=== PATIENT | female | born 1995 | race African-American/Black ===

== ENCOUNTER 2017-06-30 22:06 | Inpatient (IN) | payer OTHER, SELFPAY ==
[2017-06-30] MEDS ORDERED: Acetaminophen 500 MG TAB ONE (22:17)
[2017-06-30 23:20] LABS: Bilirubin Negative (Negative); Blood, Urine Large (Negative); Clarity TURBID (Clear); Glucose, Urine (Dipstick) Negative (Negative); Leukocyte Large (Negative); Nitrite Negative (Negative); Protein, Urine (Dipstick) 100 mg/dL (Neg-Trace); Specific Gravity, Urine 1.016 (1.002-1.036); Urobilinogen 0.2 mg/dL (0.2-1.0); pH, Urine 6.5 (5.0-9.0)
[2017-06-30 23:22] LABS: Bacteria/HPF 4+ HPF (None Seen); Hyaline Casts/LPF 7-10 HYALINE CAST LPF (0-3 Hyaline); RBC/HPF GREATER THAN 50-TNTC HPF (0-3); Squamous Epithelial 0-3 HPF (0-3)
[2017-06-30] MEDS ORDERED: cefTRIAXone\\ROCEPHIN 2 GM in Sodium Chloride 0.9% 100 ML IVPB SCH (23:59)
[2017-07-01] LABS: #Basophils 0.1 thou/uL (0.0-0.2); #Lymphocytes 0.6 thou/uL (1.20-3.40); #Monocytes 0.6 thou/uL (0.11-0.59); #Neutrophils 7.9 thou/uL (1.40-6.50); %Basophils 0.9 % (0.0-1.0); %Eosinophils 0.2 % (0.0-10.0); %Lymphocytes 6.6 % (21.0-51.0); %Monocytes 6.3 % (0.0-10.0); %Neutrophils 86.1 % (42.0-75.0); Hemoglobin 10.7 g/dL (12.0-16.0); Mean Corpuscular HGB CONC 33.8 g/dL (32.0-36.0); Mean Corpuscular Hemoglobin 31.7 pg (27.0-31.0); Mean Corpuscular Volume 93.7 fl (81.0-99.0); Mean Platelet Volume 8.1 fL (7.4-10.4); Platelet Count 215 thou/uL (130-400); RBC Distribution Width 11.9 % (11.5-14.5); Red Blood Cell (RBC) Count 3.37 mill/uL (4.20-5.40); White Blood Cell (WBC) Count 9.2 thou/uL (4.8-10.8)
[2017-07-01 00:25] LABS: ALT (SGPT) 14 U/L (8-55); AST (SGOT) 15 U/L (5-34); Albumin 3.3 g/dL (3.5-5.0); Alkaline Phosphatase 122 U/L (40-150); Anion Gap 12 mmol/L (10-20); BUN (Urea Nitrogen) 7 mg/dL (7.0-18.7); Bilirubin, Total 0.3 mg/dL (0.2-1.2); Calc. Creatinine Clearance 0 mL/min (70-130); Calcium 9.3 mg/dL (7.8-10.44); Carbon Dioxide 22 mmol/L (22-29); Chloride 104 mmol/L (98-107); Estimated GFR-MDRD Greater than 90; Globulin 3.6 g/dL (2.4-3.5); Glucose 89 mg/dL (70-105); Potassium 3.7 mmol/L (3.5-5.1); Protein, Total 6.9 g/dL (6.0-8.3); Sodium 134 mmol/L (136-145)
--- NOTE | 2017-07-01 00:27 | PDOC.EVN ---
Event Note - Event Note Event Note: @0015: OB HISTORY and PHYSICAL Admitted direct from ED for Dr cary Reason: Suspected Pyelo at 24 weeks HPI: This is a 24 yo G1 at 24 weeks with complaint of fever. no VB, no ROM, no decreased FM. Denies other issues. No GI or other complaints...just fever. Review of systems: Complete ROS done and negative as per HPI Med Hx: negative Allergies: None Surgical HX: none labs with WBC 9.2, HCT 31, CMP pending, UA with evidence UTI. Physical: TMax 101.4 NAD Ut firm No VB No real CVAT Pending: Ob sono, bilateral renal sono, urine and blood cultures Assessment: 24 weeks with fever and UA with evidence UTI...suspected Pyelo. Influenza screen neg Plan: 1. Blood and urine cultures 2. Start IV Rocephin and po macrobid until sensitivities back 3. IVFs 4. Ob and bilateral renal sono 5. Dr Cary will assume care tomorrow, she is aware of the arrival of Servin.
[2017-07-01] MEDS ORDERED: Acetaminophen 500 MG TAB PO PRN (00:30)
--- NOTE | 2017-07-01 00:33 | PDOC.EVN ---
Event Note - Event Note Event Note: Creatinine 0.8
--- NOTE | 2017-07-01 08:28 | ULT ---
PRELIMINARY REPORT/[facility]/EMERGENCY AFTER HOURS PROCEDURE: EXAM: US After First Trimester, Transabdominal CLINICAL HISTORY: 21 years old, female; Signs and symptoms; Lmp or gestational age (in weeks): 25w0d; Antepartum compli cations; Other: Fever 104; ; Patient HX: Fever, n/v TECHNIQUE: Real-time transabdominal obstetrical ultrasound of the maternal pelvis and a second or third trimeste r with image documentation. COMPARISON: No relevant prior studies available. FINDINGS: Fetus: Single live intrauterine Heart rate: 165 beats per minute Presentation: Vertex Placenta: Unremarkable. No abruption. Amniotic fluid: Unremarkable. Anatomy: Visualized anatomy is normal. BIOMETRICS Gestational age by US: 25 weeks and 0 days EFW: 765 g MATERNAL: Uterus: Unremarkable. No myometrial mass. Cervix: Unremarkable as visualized. Closed. Free fluid: No free fluid. IMPRESSION: Single live intrauterine with estimated due date of 10/14/2017 No acute findings Thank you for allowing us to participate in the care of your patient. Dictated and Authenticated by: Sami Dalal MD 07/01/2017 2:41 AM Central Time ([place] & [place]) FINAL REPORT BY DR. RAMSEY EMERGENCY AFTER HOURS STUDY ULTRASOUND OBSTETRICAL COMPLETE: HISTORY: 21-year-old female with fever. FINDINGS: number: Cristobal. lie: Cephalic. Maternal cervix: 3 cm in length and closed. Placenta: Posterior. No placenta previa or abruption. Amniotic fluid volume: CESAR = 13 cm. heart rate: 165 bpm. The following anatomy is visualized, with no evidence of anomalies: Head, lateral ventricles, cerebellum, nose and lips, spine, upper limbs, lower limbs, four chamber he art, umbilical cord, cord insertion, stomach, kidneys, and bladder. biometry: Head circumference (HC): 22.8 cm 24w 6d Biparietal diameter (BPD): 6.2 cm 25w 1d Abdominal circumference (AC): 20.3 cm 24w 6d Femur length (FL): 4.6 cm 25w 2d Average ultrasound age (AUA): 25w 0d Estimated date of delivery (PERCY): 10/14/2017 Last menstrual period (LMP): 01/03/2017. Gestational age by LMP: 25w 4d Estimated weight (EFW): 765 g+/- 113 g (1 lb, 11 oz +/- 4 oz) This report agrees with the preliminary report by Ginger. IMPRESSION: 1. Live late second trimester intrauterine gestation. 2. Estimated gestational age of 25 weeks, 0 days. 3. Cephalic lie. 4. No anatomical abnormalities. 5. No evidence of complications. jn [] POS: JIN
--- NOTE | 2017-07-01 08:31 | ULT ---
PRELIMINARY REPORT/[facility]/EMERGENCY AFTER HOURS PROCEDURE: EXAM: US Retroperitoneal Limited, Renal CLINICAL HISTORY: 21 years old, female; Signs and symptoms; Fever and nausea and vomiting; TECHNIQUE: Real-time ultrasound of the retroperitoneum (limited) with image documentation. COMPARISON: US - OB 2017-07-01 01:24 FINDINGS: The urinary bladder demonstrates mild debris. Bilateral ureteral jets noted Right kidney: Question mild increased echogenicity No stones. No solid mass. No hydronephrosis. Left kidney: 5-6 mm calculus in the midpole. No solid mass. No hydronephrosis. IMPRESSION: 5-6 mm calculus in the midpole of the left kidney without hydronephrosis Mild debris in the urinary bladder. Question mild echogenicity to the right kidney Correlate clinical ly for cystitis/pyelonephritis Thank you for allowing us to participate in the care of your patient. Dictated and Authenticated by: Sami Dalal MD 07/01/2017 2:43 AM Central Time ([place] & [place]) FINAL REPORT BY DR. RAMSEY EMERGENCY AFTER HOURS STUD ULTRASOUND RETROPERITONEUM COMPLETE: (RENAL) Date: 07/01/17 Time: 0158 hours HISTORY: 21-year-old female with fever, nausea, and emesis. FINDINGS: Right Kidney: 9.5 x 4 x 4.5 cm. Left Kidney: 10.5 x 6 x 5 cm. Right renal parenchymal echogenicity is diffusely increased. No hydronephrosis bilaterally. Hyperechoic 0.5 cm focus at central portion of left renal mid-lower pole, questionable for a calculus . Left kidney is poorly visualized because of partial obscuring secondary to shadowing from adjacent gareth wel gas. Uncertain whether the parenchymal echogenicity is abnormal. Urinary bladder volume is 55 mL at time of scan. Tiny echogenic foci suspended within the bladder lumen, which could be sludge, pus, blood, or other d ebris. This report agrees with the preliminary report by Ginger. IMPRESSION: 1. Increased echogenicity of right kidney, and questionably of the left kidney. This could represent pyelonephritis or glomerular disease. Recommend correlation with urinalysis. 2. No obstructive uropathy. 3. Debris within the urinary bladder. VITALY Ashley POS: PERLITA
[2017-07-01] MEDS: Lactated Ringer's 1,000 ML IV SCH ×4 (08:41→23:16)
--- NOTE | 2017-07-01 09:17 | PRG ---
DATE OF SERVICE: 07/01/2017 TIME OF VISIT: 0800 SUBJECTIVE: The patient reports feeling well. She has not had any nausea or vomiting since admissio n. She denies any back pain or abdominal pain. No headache. No contractions, vaginal bleeding, or leakage of fluid. She feels the baby move. OBJECTIVE: VITAL SIGNS: Temperature current 98.8, temperature max of 101.4, pulse is 86, respirations 18, blood pressure 127/81. GENERAL: No acute distress. HEART: Regular rate and rhythm. LUNGS: Clear to auscultation bilaterally. ABDOMEN: Soft, nontender, gravid. No CVA tenderness bilaterally. EXTREMITIES: No edema, cyanosis or clubbing. IMAGING: Bilateral renal ultrasound shows a 5-6 mm nonobstructing renal calculi with no hydronephros is. The right kidney shows mildly increased echogenicity, possibly consistent with cystitis or pyelo nephritis. ultrasound shows a 25-week intrauterine , cephalic presentation, weighing 765 grams, CESAR of 13 cm, 3 cm cervical length. Normal appearing placenta. LABORATORY DATA: White count 9.2, hemoglobin 10.7, 86% neutrophils. Chemistries are normal. UA bradford ws 3+ protein, trace ketones, large blood, large leukocyte esterase and 4+ bacteria. ASSESSMENT AND PLAN: This is a 21-year-old G1, P0 at 25 weeks 4 days with fever and complicated cyst itis and a left nephrolithiasis, nonobstructing and asymptomatic. The patient has been started on Ro cephin 2 grams q.24 as well as IV fluids. We will await culture results for further tailoring of out patient antibiotic therapy. I discussed with the patient, she needs to be at least 24 hours afebrile prior to discharge. She has no evidence of labor or chorioamnionitis, and her ultrasound of the baby was normal. We will do q. shift FHTs and continue current inpatient care.
[2017-07-01] MEDS: Prenatal Vitamin 1 TAB PO SCH (12:12)
[2017-07-01] MEDS: Nitrofurantoin Monohyd/M-Cryst 100 MG CAP PO SCH ×2 (12:12→22:07)
[2017-07-02] MEDS ORDERED: cefTRIAXone\\ROCEPHIN 2 GM in Sodium Chloride 0.9% 100 ML IVPB SCH (00:01)
[2017-07-02] MEDS ORDERED: Sodium Chloride 0.9% 10 ML ONE (00:16)
[2017-07-02] MEDS: Lactated Ringer's 1,000 ML IV SCH (06:34)
[2017-07-02] MEDS: Prenatal Vitamin 1 TAB PO SCH (08:35)
[2017-07-02] MEDS: Nitrofurantoin Monohyd/M-Cryst 100 MG CAP PO SCH (08:35)
[2017-07-02] MEDS ORDERED: Cephalexin 250 MG CAP PO SCH ×2 (10:30→21:00)
[2017-07-02 10:47] VITALS: BP 130/87; TEMP 98.7
--- NOTE | 2017-07-02 11:40 | DIS ---
DATE OF ADMISSION: 06/30/2017 DATE OF DISCHARGE: 07/02/2017 ADMISSION DIAGNOSES: 1. Intrauterine at 25 weeks and 3 days. 2. Pyelonephritis. DISCHARGE DIAGNOSES: 1. Intrauterine at 25 weeks and 5 days. 2. Pyelonephritis. DISCHARGE CONDITION: Stable. ATTENDING PHYSICIAN: Mayra Cary M.D. HISTORY AND PHYSICAL EXAMINATION: Please see previously dictated H&P by Dr. Power. HOSPITAL COURSE: A 21-year-old G1, P0, presented at 25 weeks and 3 days with fever, some abdominal d iscomfort and nausea and vomiting. She had no evidence of labor as well as any intra-abdomin al process. She did have a UA that showed 4+ bacteria and signs consistent with complicated urinary tract infection versus pyelonephritis. She had bilateral renal ultrasound that showed increased echo genicity in the right kidney, possibly consistent with infection and a small nonobstructing 5 mm calc claudio in the left renal pole. She also had a ultrasound that showed a size equal dates vertex fe tus with good amniotic fluid. The patient did not have any pain during her admission. She was afebr ile from her temperature max of 101.4 in the ER. She was started on Rocephin 2 g daily as well as IV fluids and urine culture was sent. The urine culture returned as Klebsiella UTI that was sensitive to Rocephin as well as Keflex. It was intermediate sensitivity to Macrobid. Therefore, the patient was transitioned to p.o. Keflex b.i.d. for 7 days and then she will continue on Keflex suppression f or the remainder of her . FHTs were monitored on a daily basis and she tolerated a regular diet and had a benign exam on the day of discharge. She will follow up with me next week in clinic a nd was given warnings to return to the ER in the event of recurrent fever or severe pain. Final urin e culture is pending at the time of discharge.
== END 2017-07-02 11:39 | disposition home or self-care (01) | DRG 782 ==
LOC: ERS 22:06 → ERHOLD 07-01 00:15 → 3SE 07-01 07:26
PROVIDERS: ADMIT Student in an Organized Health Care Education/Training Program; ATTEND Student in an Organized Health Care Education/Training Program
DX: O75.3 Other infection during labor (principal); N20.0 Calculus of kidney; Z3A.25 25 weeks gestation of pregnancy
CPT/HCPCS: 76770; 76805; 80053; 81003; 81015; 83605; 85025; 87040; 87077; 87086; 87186; 96361; 96365; A4216; J0696; J7050

== ENCOUNTER 2017-07-23 16:22 | Inpatient (IN) | payer OTHER ==
[2017-07-23] MEDS ORDERED: hydrALAZINE 20 MG/ML VIAL ONE (17:13)
[2017-07-23] MEDS ORDERED: Magnesium Sulfate 20 GM/WATER 500 ML BAG IVPB SCH (17:15)
[2017-07-23] MEDS: hydrALAZINE 20 MG/ML VIAL SLOW IVP PRN ×2 (17:22→17:48)
[2017-07-23] MEDS ORDERED: Ondansetron HCl/PF 4 MG/2 ML Vial IVP PRN (17:39)
[2017-07-23] MEDS: Lactated Ringer's 1,000 ML IV SCH (17:45)
[2017-07-23] MEDS ORDERED: Lactated Ringer's 1,000 ML IV SCH (17:45)
[2017-07-23] MEDS: Magnesium Sulfate 20 gm/500 ml 20 GM/500 ML BAG IVPB SCH (18:05)
[2017-07-23 18:22] LABS: #Basophils 0.1 thou/uL (0.0-0.2); #Eosinphils 0.1 thou/uL (0.0-0.7); #Lymphocytes 2.3 thou/uL (1.20-3.40); #Monocytes 1.2 thou/uL (0.11-0.59); #Neutrophils 6.5 thou/uL (1.40-6.50); %Basophils 0.6 % (0.0-1.0); %Eosinophils 0.6 % (0.0-10.0); %Lymphocytes 22.4 % (21.0-51.0); %Monocytes 11.8 % (0.0-10.0); %Neutrophils 64.6 % (42.0-75.0); Hemoglobin 12.3 g/dL (12.0-16.0); Mean Corpuscular HGB CONC 32.9 g/dL (32.0-36.0); Mean Corpuscular Hemoglobin 30.7 pg (27.0-31.0); Mean Corpuscular Volume 93.4 fl (81.0-99.0); Mean Platelet Volume 8.5 fL (7.4-10.4); Platelet Count 239 thou/uL (130-400); RBC Distribution Width 12.4 % (11.5-14.5); White Blood Cell (WBC) Count 10.1 thou/uL (4.8-10.8)
[2017-07-23 18:42] LABS: ALT (SGPT) 9 U/L (8-55); AST (SGOT) 17 U/L (5-34); Albumin 2.6 g/dL (3.5-5.0); Alkaline Phosphatase 187 U/L (40-150); Anion Gap 11 mmol/L (10-20); BUN (Urea Nitrogen) 9 mg/dL (7.0-18.7); Bilirubin, Total 0.2 mg/dL (0.2-1.2); Calc. Creatinine Clearance 0 mL/min (70-130); Calcium 8.6 mg/dL (7.8-10.44); Carbon Dioxide 21 mmol/L (22-29); Chloride 106 mmol/L (98-107); Estimated GFR-MDRD Greater than 90; Globulin 3.5 g/dL (2.4-3.5); Glucose 65 mg/dL (70-105); Potassium 4.3 mmol/L (3.5-5.1); Protein, Total 6.1 g/dL (6.0-8.3); Sodium 134 mmol/L (136-145)
[2017-07-23] MEDS: Betamet Acet/Betamet Na Ph 30 MG/5 ML VIAL IM SCH (18:51)
[2017-07-23 19:05] LABS: HBSAg Index 0.18 S/CO (0-0.99); Hep B Surf Ag Non-Reactive S/CO (NonReactive)
[2017-07-23 19:06] LABS: Syphilis Antibody Nonreactive (Nonreactive); Syphilis Antibody Index 0.03 S/CO (<1.00 Non-Reactive)
--- NOTE | 2017-07-23 19:09 | ULT ---
OB ULTRASOUND WITH BIOPHYSICAL PROFILE: 07/23/17 HISTORY: Pre-eclampsia. FINDINGS: A single live intrauterine gestation is seen with measurements corresponding to an estimated gestatio nal age of 28 weeks, 0 days and PERCY at 10/15/17. The estimated weight measures 1106 grams or 2 lb. and 7 oz. measurements are as follows: BPD 7.17 cm 28 weeks, 5 days HC 26.47 cm 28 weeks, 6 days AC 22.97 cm 27 weeks, 2 days FL 5.16 cm 27 weeks, 4 days heart rate measures 144 beats per minute. CESAR measures 12.3 cm. Placenta is posteriorly located without evidence of placenta previa. position is cephalic. The visualized parts are unre markable. There is normal tone, breathing, movements and amniotic fluid. IMPRESSION: 1. Single live intrauterine gestation of 28 weeks, 0 days and PERCY at 10/15/17. 2. Ultrasound biophysical profile score is 8 out of 8. POS: AMALIA
[2017-07-23 19:20] VITALS: BMI 26.5
[2017-07-23] MEDS ORDERED: NIFEdipine XL 30 MG TAB PO SCH (19:45)
[2017-07-24] MEDS: Magnesium Sulfate 20 gm/500 ml 20 GM/500 ML BAG IVPB SCH ×2 (01:53→16:16)
[2017-07-24] MEDS: Lactated Ringer's 1,000 ML IV SCH ×3 (06:29→19:17)
[2017-07-24] MEDS ORDERED: FLU VACC QS2017-18 36 mo. & older 0.5 ML SYRINGE IM ONE (09:00)
[2017-07-24 09:25] LABS: ALT (SGPT) 9 U/L (8-55); AST (SGOT) 15 U/L (5-34); Albumin 2.6 g/dL (3.5-5.0); Alkaline Phosphatase 192 U/L (40-150); Anion Gap 14 mmol/L (10-20); BUN (Urea Nitrogen) 11 mg/dL (7.0-18.7); Bilirubin, Total Less than 0.2 mg/dL (0.2-1.2); Calc. Creatinine Clearance 89 mL/min (70-130); Calcium 8.5 mg/dL (7.8-10.44); Carbon Dioxide 21 mmol/L (22-29); Chloride 102 mmol/L (98-107); Estimated GFR-MDRD 78; Globulin 3.7 g/dL (2.4-3.5); Glucose 91 mg/dL (70-105); Potassium 5.6 mmol/L (3.5-5.1); Protein, Total 6.3 g/dL (6.0-8.3); Sodium 131 mmol/L (136-145)
[2017-07-24] MEDS: NIFEdipine XL 30 MG TAB PO SCH (10:08)
--- NOTE | 2017-07-24 10:58 | HP ---
DATE OF ADMISSION: 07/23/2017 PRIMARY OB: Mayra Cary MD CHIEF COMPLAINT: Elevated blood pressures. HISTORY OF PRESENT ILLNESS: The patient is a 21-year-old female with an intrauterine at 28 weeks and 6 days, who was sent to Labor and Delivery from clinic for elevated blood pressures. The patient denies headaches, abdominal pains, shortness of breath, illness or fever. She denies v aginal bleeding, leakage of fluid. PAST MEDICAL HISTORY: Negative. PAST SURGICAL HISTORY: Negative. ALLERGIES: No known drug allergies. MEDICATIONS: She is on vitamins and was recently started on Keflex last month for an unknow n infection cyst assumed UTI. SOCIAL HISTORY: Denies drug, alcohol or tobacco use. OB LABS: Blood type is A positive, antibody screen is negative, HIV nonreactive, RPR nonreactive, he patitis B surface antigen nonreactive. Her one hour Glucola is unavailable. REVIEW OF SYSTEMS: The patient denies headache, chest pain, shortness of breath, fall, illness, naus ea, vomiting, diarrhea, constipation, any new rashes, hip problems, knee problems, muscle weakness, v aginal bleeding, leakage of fluid, or urinary urgency or frequency. PHYSICAL EXAMINATION: VITAL SIGNS: On arrival, blood pressure was 192/101 and persisted in the severe range until she was treated with Apresoline 5 x2, which brought her down into the mild range blood pressures. GENERAL: She is alert and oriented, cooperative and pleasant to interact with. HEENT: Head is normocephalic, atraumatic. LUNGS: Clear to auscultation bilaterally. HEART: Regular rate and rhythm. ABDOMEN: Soft, nontender. EXTREMITIES: Nontender, but has 2+ pitting edema. GENITOURINARY: Has been deferred. HEART TRACING: Fetus was in the 140s with moderate long-term variability, positive acceleratio ns, no decelerations. Tocometer has some irritability, but no irregular contractions felt by the pat ient. LABORATORY DATA: Hemoglobin is 12.3, hematocrit is 37.3, and platelets of 239,000. Sodium 134, pota ssium 4.3, chloride 106, BUN is 9, creatinine is 0.93, glucose of 65, AST is 17, ALT is 9, albumin is 2.6. Her total urine random total protein is over 2000 and urine creatinine is 127. Hepatitis B tomas rface antigen is nonreactive and RPR is nonreactive with this admission. BPP is 8/8 and ultrasound has a fetus appropriate size for age with normal CESAR. ASSESSMENT AND PLAN: The patient is a 21-year-old female with severe induced hypertension or preeclampsia with severe features as evidenced by significant proteinuria and possible elevation i n her creatinine. She has required a total of 2 doses of hydralazine to bring her pressures into the mild range. She will be admitted to the hospital for magnesium for seizure prophylaxis, steroid adm inistration and continued observation with serial labs. Fetus has a category 1 tracing at this time. The patient will remain inpatient for the foreseeable future for management of this condition, deli very if indicated or when indicated.
[2017-07-24 12:06] LABS: Hemoglobin 12.5 g/dL (12.0-16.0); Mean Corpuscular HGB CONC 33.1 g/dL (32.0-36.0); Mean Corpuscular Hemoglobin 31.5 pg (27.0-31.0); Mean Corpuscular Volume 95.1 fl (81.0-99.0); Mean Platelet Volume 8.8 fL (7.4-10.4); Platelet Count 267 thou/uL (130-400); RBC Distribution Width 12.6 % (11.5-14.5); Red Blood Cell (RBC) Count 3.99 mill/uL (4.20-5.40); White Blood Cell (WBC) Count 13.5 thou/uL (4.8-10.8)
[2017-07-24 12:19] LABS: Magnesium 8.6 mg/dL (1.6-2.6); Potassium 5.3 mmol/L (3.5-5.1)
[2017-07-24] MEDS: Betamet Acet/Betamet Na Ph 30 MG/5 ML VIAL IM SCH (18:12)
[2017-07-24 18:20] LABS: #Basophils 0.1 thou/uL (0.0-0.2); #Lymphocytes 1.6 thou/uL (1.20-3.40); #Monocytes 1.1 thou/uL (0.11-0.59); #Neutrophils 13.2 thou/uL (1.40-6.50); %Basophils 0.5 % (0.0-1.0); %Lymphocytes 9.9 % (21.0-51.0); %Monocytes 6.9 % (0.0-10.0); %Neutrophils 82.6 % (42.0-75.0); Hemoglobin 12.4 g/dL (12.0-16.0); Mean Corpuscular HGB CONC 33.5 g/dL (32.0-36.0); Mean Corpuscular Hemoglobin 31.2 pg (27.0-31.0); Mean Corpuscular Volume 93.2 fl (81.0-99.0); Platelet Count 273 thou/uL (130-400); RBC Distribution Width 12.6 % (11.5-14.5); Red Blood Cell (RBC) Count 3.96 mill/uL (4.20-5.40)
[2017-07-24 18:38] LABS: Anion Gap 13 mmol/L (10-20); BUN (Urea Nitrogen) 12 mg/dL (7.0-18.7); Calc. Creatinine Clearance 86 mL/min (70-130); Calcium 8.2 mg/dL (7.8-10.44); Carbon Dioxide 19 mmol/L (22-29); Chloride 102 mmol/L (98-107); Estimated GFR-MDRD 75; Glucose 91 mg/dL (70-105); Magnesium 7.4 mg/dL (1.6-2.6); Sodium 129 mmol/L (136-145)
[2017-07-24] MEDS ORDERED: Promethazine HCl 25 MG/ML VIAL IM PRN (18:55)
[2017-07-24] MEDS ORDERED: Ondansetron HCl/PF 4 MG/2 ML Vial IVP PRN (18:55)
[2017-07-24] MEDS ORDERED: Zolpidem Tartrate 5 MG TAB PO PRN (18:55)
[2017-07-24] MEDS ORDERED: Magnesium Sulfate 20 gm/500 ml 20 GM/500 ML BAG IVPB SCH (18:59)
[2017-07-24] MEDS ORDERED: CEFAZOLIN/Water 2 GM/20 ML SYRINGE SLOW IVP SCH (19:00)
[2017-07-24] MEDS ORDERED: Bicitra 30 ML UDCUP PO SCH (19:00)
--- NOTE | 2017-07-24 19:23 | PRG ---
DATE OF SERVICE: 07/24/2017 TIME OF SERVICE: 13:15. SUBJECTIVE: Ms. Servin is resting comfortably. She denies headaches, scotoma, or blurred vision. OBJECTIVE: VITAL SIGNS: Blood pressures are running 130s to 140s systolic over 80s-90s diastolic. heart rate tracing is 120s to 130s. No contractions noted. No decelerations noted. Category 1 tracing. LABORATORY STUDIES: Elevated potassium was noted along with a slight increase in her creatinine and a mag of 8. IMPRESSION: Severe preeclampsia at 27-28 weeks. The patient is currently receiving magnesium and an tenatal steroids. PLAN: We will recheck labs at 1800. If labs continue to worsen, may need to facilitate delivery.
--- NOTE | 2017-07-24 19:43 | PRG ---
DATE OF SERVICE: 07/24/2017 TIME OF SERVICE: 1900. SUBJECTIVE: Patient is resting comfortably. She denies headache, reports an active fetus. No contractions, no right upper quadrant pain. Exam unchanged. LABORATORY DATA: Patient's hematocrit is 37%, which is consistent with her previous hematocrit. Platelet count is stable at 273, white count is slightly elevated at 16,000 likely secondary to betamethasone administration. Chemistry reveals mild hyponatremia at 129. Her potassium has come down to within normal limits of 5.0. Her creatinine has increased slightly from 0.93 of 24 hours ago to 1.07 this a.m. to 1.1 now. Her mag level decreased from 8.6-7.4. Her ALT is stable at 13. OBJECTIVE: VITAL SIGNS: Patient's urine output has ranged between 100 to 25 mL an hour. There is averaging approximately 30-40 mL per hour. Total urine output over 11 hours was 480 mL. Total input was 1200 mL. Blood pressures during the day today have generally ranged in the 130s to 140s systolic over 80s to low 100s diastolic, and the patient remains afebrile. HEART: Rate tracing remains category 1-2 with no significant decels, decreased variability as would be expected with magnesium sulfate. IMPRESSION: Severe preeclampsia was primarily renal features at 28-29 weeks' gestation. Patient is currently 25 hours post-initial administration of corticosteroids. Magnesium levels remained moderately elevated likely due to decrease renal function. Cervix is unfavorable cephalic remote from delivery with an estimated weight of 1100 grams on ultrasound. PLAN: Patient's care plan was discussed with Dr. Cary and with Dr. Box. All parties are in agreement that delivery is likely necessary in the medium term future. As the creatinine is slowly increasing and the patient is maintaining a reasonable urine output, although low, we will plan on performing primary section in the a.m. of 07/25/2017. We will allow the patient to eat tonight and be n.p.o. after midnight. We will back magnesium off to one- half gram per hour. We will continue current IV rate. We will recheck labs in a.m. Anesthesia aware of care of plan. Continue sequential compression devices for deep venous thrombosis prophylaxis. We will continue to care for the patient on labor and delivery unit and continue routine magnesium sulfate therapy and care including monitoring for magnesium toxicity signs and symptoms. JAYDEN
[2017-07-24 20:12] LABS: HBSAg Index 0.19 S/CO (0-0.99); Hep B Surf Ag Non-Reactive S/CO (NonReactive); Syphilis Antibody Nonreactive (Nonreactive); Syphilis Antibody Index 0.05 S/CO (<1.00 Non-Reactive)
[2017-07-25] MEDS: Lactated Ringer's 1,000 ML IV SCH (01:54)
[2017-07-25 05:47] LABS: INR-International Normal Ratio 0.9; PTT 23.1 SEC (22.9-36.1); Prothrombin Time 12.1 SEC (12.0-14.7)
[2017-07-25 05:56] LABS: AST (SGOT) 17 U/L (5-34); Anion Gap 11 mmol/L (10-20); BUN (Urea Nitrogen) 18 mg/dL (7.0-18.7); Calc. Creatinine Clearance 71 mL/min (70-130); Carbon Dioxide 20 mmol/L (22-29); Chloride 102 mmol/L (98-107); Estimated GFR-MDRD 60; Glucose 109 mg/dL (70-105); Magnesium 6.1 mg/dL (1.6-2.6); Potassium 5.6 mmol/L (3.5-5.1); Sodium 127 mmol/L (136-145)
[2017-07-25 06:11] LABS: #Lymphocytes 1.3 thou/uL (1.20-3.40); #Monocytes 0.5 thou/uL (0.11-0.59); #Neutrophils 11.9 thou/uL (1.40-6.50); %Basophils 0.3 % (0.0-1.0); %Eosinophils 0.1 % (0.0-10.0); %Lymphocytes 9.7 % (21.0-51.0); %Monocytes 3.6 % (0.0-10.0); %Neutrophils 86.3 % (42.0-75.0); Band 3 % (5-11); Hemoglobin 12.3 g/dL (12.0-16.0); Lymphocytes 14 % (21-51); MDiff Complete? YES; Mean Corpuscular HGB CONC 33.1 g/dL (32.0-36.0); Mean Corpuscular Hemoglobin 31.6 pg (27.0-31.0); Mean Corpuscular Volume 95.4 fl (81.0-99.0); Mean Platelet Volume 9.1 fL (7.4-10.4); Monocytes 2 % (0-10); Neutrophil 81 % (42-75); PLT Morphology Comment Appears Adequate; Platelet Count 194 thou/uL (130-400); RBC Distribution Width 12.6 % (11.5-14.5); RBC Morphology Normal; Red Blood Cell (RBC) Count 3.88 mill/uL (4.20-5.40); White Blood Cell (WBC) Count 13.8 thou/uL (4.8-10.8)
[2017-07-25] MEDS ORDERED: Dextrose 5%-Lactated Ringers 1,000 ML IV SCH (07:00)
[2017-07-25] MEDS ORDERED: Fentanyl 100 MCG/2 ML VIAL ONE ×3 (07:22→10:19)
[2017-07-25] MEDS ORDERED: Morphine PF 1 MG/ML SYR ONE (07:22)
[2017-07-25] MEDS ORDERED: Oxytocin 10 UNITS/ML VIAL ONE (07:22)
[2017-07-25] MEDS ORDERED: Ondansetron HCl/PF 4 MG/2 ML Vial ONE ×2 (07:22→17:07)
[2017-07-25] MEDS ORDERED: ePHEDrine/0.9% NaCl/PF SYRINGE 50 mg/10 ml ONE ×3 (07:33→17:07)
[2017-07-25] MEDS ORDERED: Bupivacaine PF 0.5% 30 ML VIAL ONE (07:33)
--- NOTE | 2017-07-25 08:02 | PDOC.OPDEL ---
OB Operative/Delivery Note Delivery Dr/Surgeon: Raeann Assist: Trent Pre-Delivery Diagnosis: other (Preeclampsia with severe features at 29weeks with renal failure) Procedure/Post Delivery Dx: primary low transverse CS Weeks gestation: 29 Anesthesia: epidural - Findings A Sex: female Weight: 2 lb 8 oz - 1 min: 7 - 5 min: 9 - Additional Findings/Plan Placenta delivered: spontaneous findings: low transverse hysterotomy without extension, normal uterus, normal tubes, normal ovaries Estimated blood loss: 600 Post delivery plan: recovery in LICU
[2017-07-25 08:22] LABS: Osmolality, Urine 317 mOsm/kg (300-900)
[2017-07-25 08:33] LABS: Sodium, Urine Less than 20 mmol/L (Not Available)
[2017-07-25] MEDS ORDERED: Naloxone HCl 0.4 mg/ml Vial IV PRN (08:46)
[2017-07-25] MEDS ORDERED: Ketorolac Tromethamine 30 MG/ML VIAL IVP PRN (08:46)
[2017-07-25] MEDS ORDERED: diphenhydrAMINE 50 MG/ML VIAL IVP PRN (08:46)
[2017-07-25] MEDS ORDERED: Naloxone HCl 0.4 mg/ml Vial IVP PRN ×2 (08:46)
[2017-07-25] MEDS ORDERED: Ondansetron HCl/PF 4 MG/2 ML Vial IVP PRN (08:46)
[2017-07-25] MEDS ORDERED: Eucerin (Mineral Oil/Petrolatum,White) 30 gm Jar TOP PRN (08:46)
[2017-07-25] MEDS ORDERED: Communication Order-Pharmacy FS SCH (09:00)
[2017-07-25] MEDS ORDERED: Lanolin Ointment 7 GM TUBE TOP PRN (09:29)
[2017-07-25] MEDS ORDERED: Acetaminophen 325 MG TAB PO PRN (09:29)
[2017-07-25] MEDS ORDERED: Bisacodyl 10 MG SUPP PR PRN (09:29)
[2017-07-25] MEDS ORDERED: diphenhydrAMINE 25 MG CAP PO PRN (09:29)
[2017-07-25] MEDS ORDERED: Adacel (T-DAP) 0.5 ML VIAL IM ONE (09:29)
[2017-07-25] MEDS ORDERED: Furosemide 20 MG/2 ML VIAL SLOW IVP SCH (09:29)
[2017-07-25] MEDS ORDERED: Docusate Calcium (SURFAK) 240 MG CAP PO SCH (09:45)
[2017-07-25] MEDS ORDERED: Prenatal Vitamin 1 TAB PO SCH (09:45)
[2017-07-25] MEDS ORDERED: Ferrous Sulfate 325 MG TAB PO SCH (09:45)
[2017-07-25] MEDS: NIFEdipine XL 30 MG TAB PO SCH (09:47)
[2017-07-25 10:04] LABS: Anion Gap 13 mmol/L (10-20); BUN (Urea Nitrogen) 20 mg/dL (7.0-18.7); Calc. Creatinine Clearance 68 mL/min (70-130); Calcium 7.7 mg/dL (7.8-10.44); Carbon Dioxide 19 mmol/L (22-29); Chloride 104 mmol/L (98-107); Estimated GFR-MDRD 57; Glucose 109 mg/dL (70-105); Magnesium 5.7 mg/dL (1.6-2.6); Potassium 5.4 mmol/L (3.5-5.1); Sodium 131 mmol/L (136-145)
[2017-07-25] MEDS: Dextrose 5 % And 0.9 % NaCl 1,000 ML IV SCH (11:52)
--- NOTE | 2017-07-25 12:48 | ADD-OP ---
ADDENDUM DATE OF PROCEDURE: 07/25/2017 I was present and scrubbed to assist the uncomplicated primary low transverse with Dr. Nevin Cary. Please see her note for full details.
[2017-07-25 14:22] LABS: ALT (SGPT) 10 U/L (8-55); AST (SGOT) 15 U/L (5-34); Albumin 2.5 g/dL (3.5-5.0); Alkaline Phosphatase 181 U/L (40-150); Anion Gap 13 mmol/L (10-20); BUN (Urea Nitrogen) 21 mg/dL (7.0-18.7); Bilirubin, Total Less than 0.2 mg/dL (0.2-1.2); Calc. Creatinine Clearance 65 mL/min (70-130); Calcium 8.1 mg/dL (7.8-10.44); Carbon Dioxide 21 mmol/L (22-29); Chloride 103 mmol/L (98-107); Estimated GFR-MDRD 54; Globulin 3.7 g/dL (2.4-3.5); Glucose 100 mg/dL (70-105); Potassium 4.9 mmol/L (3.5-5.1); Protein, Total 6.2 g/dL (6.0-8.3); Sodium 132 mmol/L (136-145)
[2017-07-25] MEDS: Ferrous Sulfate 325 MG TAB PO SCH (18:30)
[2017-07-25] MEDS ORDERED: HYDROcodone/Acetaminophen 5/325 mg Tablet PO PRN (21:00)
[2017-07-25] MEDS: Docusate Calcium (SURFAK) 240 MG CAP PO SCH (22:30)
[2017-07-26 07:16] LABS: Hemoglobin 11.4 g/dL (12.0-16.0); Mean Corpuscular HGB CONC 32.9 g/dL (32.0-36.0); Mean Corpuscular Hemoglobin 31.8 pg (27.0-31.0); Mean Corpuscular Volume 96.7 fl (81.0-99.0); Mean Platelet Volume 8.6 fL (7.4-10.4); Platelet Count 232 thou/uL (130-400); RBC Distribution Width 12.7 % (11.5-14.5); Red Blood Cell (RBC) Count 3.59 mill/uL (4.20-5.40); White Blood Cell (WBC) Count 15.1 thou/uL (4.8-10.8)
[2017-07-26] MEDS: NIFEdipine XL 30 MG TAB PO SCH (07:25)
[2017-07-26 07:32] LABS: Anion Gap 10 mmol/L (10-20); BUN (Urea Nitrogen) 17 mg/dL (7.0-18.7); Calc. Creatinine Clearance 93 mL/min (70-130); Calcium 7.5 mg/dL (7.8-10.44); Carbon Dioxide 23 mmol/L (22-29); Chloride 106 mmol/L (98-107); Estimated GFR-MDRD 82; Glucose 93 mg/dL (70-105); Potassium 4.7 mmol/L (3.5-5.1); Sodium 134 mmol/L (136-145)
--- NOTE | 2017-07-26 07:34 | PDOC.PP ---
Post Progress Note Post Day #: 1 PO intake tolerated: yes Flatus: yes Ambulation: no Vital Signs (12 hours) Temp Pulse Resp 07/26/17 04:00 98.3 F 72 20 07/26/17 00:00 98.3 F 72 20 07/25/17 20:06 98.3 F 72 20 Weight Weight 150 lb - Physical Examination General: NAD Cardiovascular: RRR Respiratory: non-labored breathing Abdominal: no distention, appropriately TTP Fundus firm & at: umb-2 Extremities: negative homans (B) (SAMARA 1+, DTR 2+ bilaterally) Neurological: no gross focal deficits Psychiatric: normal affect Result Diagrams: 07/26/17 06:37 07/26/17 06:37 Additional Labs: Post Labs Blood Type A POSITIVE 07/23/17 18:01 Hep Bs Antigen Non-Reactive S/CO (NonReactive) 07/24/17 19:17 (1) Severe preeclampsia Code(s): O14.10 - SEVERE PRE-ECLAMPSIA, UNSPECIFIED TRIMESTER Status: Acute Qualifiers: Trimester: second trimester Qualified Code(s): O14.12 - Severe pre- eclampsia, second trimester - Assessment/Plan POD1 from [facility] for Severe PIH with MAXINE Severe PEC- on Mag, up this am, no sx PIH, BP mild range, cont daily procardia. Trend labs this am. DC Mag at 24hr. Hgb appropriate postop, no sx anemia. Routine advances, DC juan c, ambulate, advance diet Rh pos RImm Transfer to floor after Mag.
[2017-07-26] MEDS: hydrALAZINE 20 MG/ML VIAL SLOW IVP PRN (08:36)
--- NOTE | 2017-07-26 12:53 | OP ---
DATE OF OPERATION: 07/25/2017 PREOPERATIVE DIAGNOSES: 1. Intrauterine at 29 weeks and 0 days. 2. Severe pre-eclampsia with acute kidney injury. POSTOPERATIVE DIAGNOSES: 1. Intrauterine at 29 weeks and 0 days. 2. Severe pre-eclampsia with acute kidney injury. PROCEDURE: Primary low transverse section via Pfannenstiel skin incision. ANESTHESIA: Epidural. SURGEON: Mayra Cary M.D. CARGO CHECKER: Taisha Newman M.D. ESTIMATED BLOOD LOSS: 600 mL. URINE OUTPUT: 45 mL of clear urine. COMPLICATIONS: None. PATHOLOGY: Placenta. DRAINS: Mckinney catheter. FINDINGS: Female infant, cephalic presentation, clear amniotic fluid, Apgars of 7 and 9, weighing 2 pounds and 8 ounces. Normal uterus, ovaries and tubes bilaterally. OPERATIVE TECHNIQUE: The patient was taken to the operating room where epidural anesthesia was found to be adequate. The patient was prepped and draped in a sterile fashion in the dorsal supine positi on with a leftward tilt. After ensuring adequacy of anesthesia, a Pfannenstiel skin incision was mad e and carried down to the underlying subcutaneous tissue with the Bovie. The fascia was nicked in th e midline with the Bovie and carried laterally with the Camara scissors. The superior aspect of the fa scia was tented with 2 Kochers and dissected off the rectus with the Camara scissors. Vascular perfora tors to the rectus were cauterized with the Bovie. The inferior aspect of the fascia was tented with 2 Kochers and dissected off the rectus down to the pubic symphysis. The rectus was bluntly divided in the midline and peritoneum was bluntly entered and manually retracted. The Migue O retractor was placed and the lower uterine segment was incised in a transverse fashion and extended with the Sam maneuver. The 's head was brought to the hysterotomy. A ROM was performed and delivere d atraumatically. Delayed cord clamping was performed and the cord was clamped and infant handed to awaiting shilpa team. The placenta was allowed to spontaneously deliver. The uterus was exteriorized, cleared of all clots and debris. The posterior cul-de-sac was lapped out. The uterus was placed kel k into the abdomen. The hysterotomy was repaired with #1 Monocryl in a running locking fashion with excellent hemostasis noted. Irrigation of the pelvis was performed, again noting hemostasis of the h ysterotomy and the rectus muscles were examined and noted to be hemostatic. The fascia was reapproxi mated with a #1 PDS x1 suture with excellent reapproximation. Subcutaneous tissue was irrigated and cauterized of any bleeders and reapproximated with 2-0 plain gut in a running fashion. Skin was clos ed with 4-0 Monocryl in a subcuticular fashion. Dermabond was applied as well as pressure dressing. The patient tolerated procedure well. Sponge, lap, needle counts are correct x2. The patient was t aken to recovery in stable condition. Patient received Ancef 2 grams prior to the procedure.
[2017-07-26] MEDS: Ferrous Sulfate 325 MG TAB PO SCH ×2 (13:25→18:40)
[2017-07-26] MEDS: Prenatal Vitamin 1 TAB PO SCH (13:25)
[2017-07-26] MEDS: Docusate Calcium (SURFAK) 240 MG CAP PO SCH (13:26)
[2017-07-26] MEDS: Dextrose 5 % And 0.9 % NaCl 1,000 ML IV SCH (13:26)
[2017-07-26] MEDS: Simethicone Chewable 80 MG TAB PO PRN (19:28)
[2017-07-26] MEDS: HYDROcodone/Acetaminophen 5/325 mg Tablet PO PRN (21:54)
[2017-07-27] MEDS: Simethicone Chewable 80 MG TAB PO PRN (03:34)
[2017-07-27] MEDS: HYDROcodone/Acetaminophen 5/325 mg Tablet PO PRN ×2 (03:34→14:00)
[2017-07-27] MEDS: Ferrous Sulfate 325 MG TAB PO SCH ×2 (07:52→18:09)
[2017-07-27] MEDS: NIFEdipine XL 30 MG TAB PO SCH (08:47)
[2017-07-27] MEDS: Prenatal Vitamin 1 TAB PO SCH (08:47)
--- NOTE | 2017-07-27 13:42 | PDOC.PP ---
Post Progress Note Post Day #: 2 PO intake tolerated: yes Flatus: no Ambulation: yes Vital Signs (12 hours) Temp Pulse Resp BP BP BP 07/27/17 08:47 97 133/82 07/27/17 07:30 98.0 F 75 16 105/59 L 07/27/17 03:40 99.5 F 80 20 134/79 Weight Weight 150 lb - Physical Examination General: NAD Cardiovascular: RRR Respiratory: non-labored breathing Abdominal: no distention, appropriately TTP Fundus firm & at: UMB-3 Skin: CS incision dry & intact Neurological: no gross focal deficits Psychiatric: normal affect Result Diagrams: 07/26/17 06:37 07/26/17 06:37 Additional Labs: Post Labs Blood Type A POSITIVE 07/23/17 18:01 Hep Bs Antigen Non-Reactive S/CO (NonReactive) 07/24/17 19:17 (1) Severe preeclampsia Code(s): O14.10 - SEVERE PRE-ECLAMPSIA, UNSPECIFIED TRIMESTER Status: Acute Qualifiers: Trimester: second trimester Qualified Code(s): O14.12 - Severe pre- eclampsia, second trimester - Assessment/Plan POD2 from [facility] for Severe PreE. VSSAF BP wnl on procardia s/p Mag, no sx PIH Routine advances, await flatus, on surfak and simethicone, enc ambulation. Cont postop care.
[2017-07-28] MEDS: HYDROcodone/Acetaminophen 5/325 mg Tablet PO PRN ×3 (00:49→14:38)
--- NOTE | 2017-07-28 08:05 | PDOC.PP ---
Post Progress Note Post Day #: 3 Subjective: Doing well this AM. Denies any complaints. Pain controlled with meds. Minimal lochia. Denies fevers, chills. PO intake tolerated: yes Flatus: yes Ambulation: yes Vital Signs (12 hours) Temp Pulse Resp BP BP 07/28/17 07:50 98.9 F 97 20 138/94 H 07/28/17 05:59 98.1 F 69 16 133/86 07/28/17 00:30 99.7 F H 07/27/17 23:06 99.8 F H 107 H 18 142/93 H Weight Weight 150 lb - Physical Examination General: NAD Cardiovascular: no m/r/g, RRR Respiratory: clear to auscultation bilaterally, non-labored breathing Abdominal: no distention, appropriately TTP Fundus firm & at: below umbilicus Extremities: negative homans (B) Skin: CS incision dry & intact, no rash Neurological: no gross focal deficits Psychiatric: A&Ox3 Result Diagrams: 07/26/17 06:37 07/26/17 06:37 Additional Labs: Post Labs Blood Type A POSITIVE 07/23/17 18:01 Hep Bs Antigen Non-Reactive S/CO (NonReactive) 07/24/17 19:17 (1) delivery delivered Code(s): O82 - ENCOUNTER FOR DELIVERY WITHOUT INDICATION Status: Acute (2) Severe preeclampsia Code(s): O14.10 - SEVERE PRE-ECLAMPSIA, UNSPECIFIED TRIMESTER Status: Acute Qualifiers: Trimester: second trimester Qualified Code(s): O14.12 - Severe pre- eclampsia, second trimester - Assessment/Plan POD3 from [facility] due to severe preE Noted increasing temp (max 99.8F) and slight tachycardia overnight, however, never febrile. Repeat CBC with diff. Also ordered UA due to h/o pyelonephritis Monitor for si/sx. Currently pt asx. BPs normotensive-mild range HTN. No sx of preE and cane piler has normalized. Plan for continued admission tonight due to in NICU and monitoring VS.
[2017-07-28] MEDS: Prenatal Vitamin 1 TAB PO SCH (08:15)
[2017-07-28] MEDS: NIFEdipine XL 30 MG TAB PO SCH (08:15)
[2017-07-28 08:16] LABS: #Basophils 0.1 thou/uL (0.0-0.2); #Eosinphils 0.1 thou/uL (0.0-0.7); #Lymphocytes 1.9 thou/uL (1.20-3.40); #Monocytes 1.1 thou/uL (0.11-0.59); #Neutrophils 7.1 thou/uL (1.40-6.50); %Basophils 0.8 % (0.0-1.0); %Eosinophils 1.4 % (0.0-10.0); %Lymphocytes 18.4 % (21.0-51.0); %Monocytes 10.7 % (0.0-10.0); %Neutrophils 68.8 % (42.0-75.0); Hemoglobin 10.6 g/dL (12.0-16.0); Mean Corpuscular HGB CONC 32.3 g/dL (32.0-36.0); Mean Corpuscular Hemoglobin 31.3 pg (27.0-31.0); Mean Platelet Volume 7.7 fL (7.4-10.4); Platelet Count 207 thou/uL (130-400); RBC Distribution Width 12.6 % (11.5-14.5); Red Blood Cell (RBC) Count 3.37 mill/uL (4.20-5.40); White Blood Cell (WBC) Count 10.3 thou/uL (4.8-10.8)
[2017-07-28] MEDS: Ferrous Sulfate 325 MG TAB PO SCH ×2 (08:16→08:42)
[2017-07-28 09:59] LABS: Bilirubin Negative (Negative); Blood, Urine Negative (Negative); Clarity CLEAR (Clear); Glucose, Urine (Dipstick) Negative (Negative); Leukocyte Negative (Negative); Nitrite Negative (Negative); Protein, Urine (Dipstick) > or equal to 300 mg/dL (Neg-Trace); Urobilinogen 0.2 mg/dL (0.2-1.0); pH, Urine 7.5 (5.0-9.0)
[2017-07-28 10:01] LABS: Bacteria/HPF Rare-Few HPF (None Seen); Hyaline Casts/LPF 0-3 HYALINE CAST LPF (0-3 Hyaline); Squamous Epithelial 0-3 HPF (0-3)
[2017-07-28 10:18] LABS: Renal Epithelial None Seen HPF (0-3); Transitional Epithelial NONE SEEN HPF (0-3)
[2017-07-29] MEDS: HYDROcodone/Acetaminophen 5/325 mg Tablet PO PRN (01:31)
[2017-07-29] MEDS: NIFEdipine XL 30 MG TAB PO SCH (06:08)
[2017-07-29] MEDS ORDERED: NIFEdipine XL 30 MG TAB PO SCH (08:00)
--- NOTE | 2017-07-29 08:01 | PDOC.PP ---
Post Progress Note Post Day #: 4 PO intake tolerated: yes Flatus: yes Ambulation: yes Vital Signs (12 hours) Temp Pulse Resp BP BP 07/29/17 06:08 75 140/101 H 07/29/17 06:00 98.8 F 75 16 140/101 H 07/29/17 01:30 98.7 F 85 20 133/89 Weight Weight 150 lb - Physical Examination General: NAD Cardiovascular: RRR Respiratory: non-labored breathing Abdominal: no distention, appropriately TTP Fundus firm & at: umb-3 Extremities: negative homans (B) Skin: CS incision dry & intact Neurological: no gross focal deficits Psychiatric: normal affect Result Diagrams: 07/28/17 08:09 07/26/17 06:37 Additional Labs: Post Labs Blood Type A POSITIVE 07/23/17 18:01 Hep Bs Antigen Non-Reactive S/CO (NonReactive) 07/24/17 19:17 (1) Severe preeclampsia Code(s): O14.10 - SEVERE PRE-ECLAMPSIA, UNSPECIFIED TRIMESTER Status: Acute Qualifiers: Trimester: second trimester Qualified Code(s): O14.12 - Severe pre- eclampsia, second trimester - Assessment/Plan POD4 from [facility] for severe PEC. BP elevated, incr procardia to 60mg, if BP ok today will DC home with close follow up. No sx PIH. s/p Mag. Doing well, met all postop milestones, other vital signs wnl Cont postop care, poss home later today.
[2017-07-29] MEDS: Ferrous Sulfate 325 MG TAB PO SCH ×2 (08:18→15:42)
[2017-07-29 08:21] VITALS: TEMP 98.7
[2017-07-29] MEDS: Prenatal Vitamin 1 TAB PO SCH (08:30)
[2017-07-29 17:27] VITALS: BP 137/90
== END 2017-07-29 17:45 | disposition home or self-care (01) | DRG 765 ==
LOC: L&D/OP 16:22 → L&D 18:37 → 3SW 07-26 13:14
PROVIDERS: ADMIT Student in an Organized Health Care Education/Training Program; ATTEND Student in an Organized Health Care Education/Training Program
PROC: 10D00Z1 Extraction of Products of Conception, Low, Open Approach (ICD-10-PCS; principal; 2017-07-25)
DX: O14.14 Severe pre-eclampsia complicating childbirth (principal); N17.9 Acute kidney failure, unspecified; E87.1 Hypo-osmolality and hyponatremia; Z3A.28 28 weeks gestation of pregnancy; O99.89 Other specified diseases and conditions complicating pregnancy, childbirth and the puerperium; O99.283 Endocrine, nutritional and metabolic diseases complicating pregnancy, third trimester; Z37.0 Single live birth
CPT/HCPCS: 36415; 51702; 76805; 76819; 80048; 80053; 81003; 81015; 82570; 83735; 83930; 83935; 84156; 84300; 84443; 84450; 85025; 85027; 85610; 85730; 86780; 86850; 86900; 86901; 87340; 88307; 99285; A4216; J0360; J0702; J1940; J2274; J2405; J2590; J3010; J3475; S0020

== ENCOUNTER 2019-02-26 20:15 | Emergency (ER) | payer OTHER, SELFPAY ==
[2019-02-26 20:53] LABS: #Basophils 0.1 thou/uL (0.0-0.2); #Lymphocytes 1.9 thou/uL (1.20-3.40); #Monocytes 0.6 thou/uL (0.11-0.59); %Basophils 0.7 % (0.0-1.0); %Eosinophils 0.3 % (0.0-10.0); %Lymphocytes 24.9 % (21.0-51.0); %Monocytes 7.6 % (0.0-10.0); %Neutrophils 66.5 % (42.0-75.0); Hemoglobin 13.1 g/dL (12.0-16.0); Mean Corpuscular HGB CONC 34.5 g/dL (32.0-36.0); Mean Corpuscular Hemoglobin 31.9 pg (27.0-31.0); Mean Corpuscular Volume 92.4 fL (78.0-98.0); Platelet Count 258 thou/uL (130-400); RBC Distribution Width 11.3 % (11.5-14.5); White Blood Cell (WBC) Count 7.6 thou/uL (4.8-10.8)
[2019-02-26 21:10] LABS: ALT (SGPT) 10 U/L (8-55); AST (SGOT) 12 U/L (5-34); Albumin 4.6 g/dL (3.5-5.0); Alkaline Phosphatase 62 U/L (40-110); Anion Gap 12 mmol/L (10-20); BUN (Urea Nitrogen) 8 mg/dL (7.0-18.7); Bilirubin, Total 0.5 mg/dL (0.2-1.2); Calc. Creatinine Clearance 0 mL/min (70-130); Calcium 9.8 mg/dL (7.8-10.44); Carbon Dioxide 23 mmol/L (22-29); Chloride 105 mmol/L (98-107); Estimated GFR-MDRD Greater than 90; Globulin 3.7 g/dL (2.4-3.5); Glucose 91 mg/dL (70-105); Potassium 3.3 mmol/L (3.5-5.1); Protein, Total 8.3 g/dL (6.0-8.3); Sodium 137 mmol/L (136-145)
[2019-02-26 21:25] LABS: BHCG - Serum POSITIVE (NEGATIVE); Pregs Control Background? CLEAR/WHITE (CLR/WHITE); Pregs Control Bar Appear? YES (CONTROL BAR)
[2019-02-26] MEDS ORDERED: Ondansetron PF 4 MG/2 ML Vial ONE (21:38)
[2019-02-26 22:08] LABS: Bacteria/HPF 3+ HPF (None Seen); Bilirubin Negative (Negative); Blood, Urine Negative (Negative); Clarity Turbid (Clear); Glucose, Urine (Dipstick) Normal (Negative); Leukocyte 250 Leu/uL (Negative); Nitrite Negative (Negative); Protein, Urine (Dipstick) 70 mg/dL (Neg-Trace); RBC/HPF 0-3 HPF (0-3); Urobilinogen 3 mg/dL (Less than 2); WBC/HPF 21-50 HPF (0-3)
[2019-02-26 22:15] LABS: Yeast-Budding None Seen HPF (None Seen)
== END 2019-02-26 20:20 | disposition home or self-care (01) ==
LOC: ERS 20:15
DX: O23.41 Unspecified infection of urinary tract in pregnancy, first trimester (principal); O21.9 Vomiting of pregnancy, unspecified; Z3A.00 Weeks of gestation of pregnancy not specified
CPT/HCPCS: 80053; 81003; 81015; 84703; 85025; 87077; 87086; 87186; 96361; 96374; J2405

== ENCOUNTER 2019-03-26 12:57 | Emergency (ER) | payer SELFPAY ==
[2019-03-26 14:11] LABS: Bilirubin Negative (Negative); Blood, Urine 1+ (Negative); Clarity Clear (Clear); Glucose, Urine (Dipstick) Normal (Negative); Leukocyte 25 Leu/uL (Negative); Nitrite Negative (Negative); Protein, Urine (Dipstick) 300 mg/dL (Neg-Trace)
[2019-03-26 14:13] LABS: #Basophils 0.1 thou/uL (0.0-0.2); #Lymphocytes 0.9 thou/uL (1.20-3.40); #Monocytes 0.8 thou/uL (0.11-0.59); #Neutrophils 8.1 thou/uL (1.40-6.50); %Basophils 0.8 % (0.0-1.0); %Eosinophils 0.2 % (0.0-10.0); %Lymphocytes 8.9 % (21.0-51.0); %Monocytes 7.7 % (0.0-10.0); %Neutrophils 82.4 % (42.0-75.0); Hemoglobin 14.7 g/dL (12.0-16.0); Mean Corpuscular HGB CONC 34.3 g/dL (32.0-36.0); Mean Corpuscular Hemoglobin 31.1 pg (27.0-31.0); Mean Corpuscular Volume 90.8 fL (78.0-98.0); Mean Platelet Volume 8.1 fL (7.4-10.4); Platelet Count 298 thou/uL (130-400); RBC Distribution Width 10.9 % (11.5-14.5); Red Blood Cell (RBC) Count 4.72 mill/uL (4.20-5.40); White Blood Cell (WBC) Count 9.8 thou/uL (4.8-10.8)
[2019-03-26 14:13] LABS: Bacteria/HPF 1+ HPF (None Seen)
[2019-03-26 14:35] LABS: ALT (SGPT) 9 U/L (8-55); AST (SGOT) 9 U/L (5-34); Albumin 4.5 g/dL (3.5-5.0); Alkaline Phosphatase 55 U/L (40-110); Anion Gap 21 mmol/L (10-20); BUN (Urea Nitrogen) 11 mg/dL (7.0-18.7); Bilirubin, Total 0.5 mg/dL (0.2-1.2); Calc. Creatinine Clearance 0 mL/min (70-130); Calcium 10.6 mg/dL (7.8-10.44); Carbon Dioxide 16 mmol/L (22-29); Chloride 101 mmol/L (98-107); Estimated GFR-MDRD Greater than 90; Globulin 4.1 g/dL (2.4-3.5); Glucose 89 mg/dL (70-105); Lipase 21 U/L (8-78); Potassium 3.7 mmol/L (3.5-5.1); Protein, Total 8.6 g/dL (6.0-8.3); Sodium 134 mmol/L (136-145)
[2019-03-26] MEDS ORDERED: Promethazine HCl 12.5 MG SUPP ONE (15:10)
[2019-03-26] MEDS ORDERED: Ondansetron PF 4 MG/2 ML Vial ONE ×2 (15:10→15:12)
[2019-03-26] MEDS ORDERED: Promethazine HCl 25 MG/ML VIAL ONE (15:13)
--- NOTE | 2019-03-26 15:42 | ULT ---
Ultrasound obstetrical early: DATE: 03/26/2019 HISTORY: 23-year-old female with nausea and vomiting. FINDINGS: Intrauterine gestational sac. pole crown-rump length 3.3 cm: 10 weeks 2 days. heart rate: 180 bpm. No subchorionic hemorrhage. Normal right ovary. Left ovary not visualized. IMPRESSION: Live first trimester intrauterine gestation with gestational age 10 weeks 2 days.
== END 2019-03-26 17:31 | disposition home or self-care (01) ==
LOC: ERS 12:57
DX: O21.0 Mild hyperemesis gravidarum (principal); O10.911 Unspecified pre-existing hypertension complicating pregnancy, first trimester; Z3A.10 10 weeks gestation of pregnancy
CPT/HCPCS: 36415; 51701; 76856; 80053; 81003; 81015; 83690; 84702; 85025; 87086; 93005; 93976; 96360; 96365; 96366; 96375; A4353; J2405; J2550

== ENCOUNTER 2019-09-07 12:28 | Day surgery (SDC) | payer OTHER ==
[2019-09-07] MEDS ORDERED: hydrALAZINE 20 MG/ML VIAL SLOW IVP PRN (12:34)
[2019-09-07 13:19] VITALS: BMI 28.4
[2019-09-07 13:19] LABS: #Basophils 0.1 thou/uL (0.0-0.2); #Lymphocytes 1.2 thou/uL (1.20-3.40); #Monocytes 0.9 thou/uL (0.11-0.59); #Neutrophils 5.3 thou/uL (1.40-6.50); %Basophils 1.3 % (0.0-1.0); %Eosinophils 0.6 % (0.0-10.0); %Lymphocytes 16.2 % (21.0-51.0); %Neutrophils 69.9 % (42.0-75.0); Mean Corpuscular HGB CONC 32.7 g/dL (32.0-36.0); Mean Corpuscular Hemoglobin 30.5 pg (27.0-31.0); Mean Corpuscular Volume 93.2 fL (78.0-98.0); Platelet Count 204 thou/uL (130-400); RBC Distribution Width 11.8 % (11.5-14.5); Red Blood Cell (RBC) Count 3.29 mill/uL (4.20-5.40); White Blood Cell (WBC) Count 7.6 thou/uL (4.8-10.8)
[2019-09-07 13:20] VITALS: BP 124/80; TEMP 99.4
[2019-09-07 13:48] LABS: ALT (SGPT) 10 U/L (8-55); AST (SGOT) 13 U/L (5-34); Albumin 3.2 g/dL (3.5-5.0); Alkaline Phosphatase 146 U/L (40-110); Anion Gap 13 mmol/L (10-20); BUN (Urea Nitrogen) 5 mg/dL (7.0-18.7); Bilirubin, Total 0.2 mg/dL (0.2-1.2); Calc. Creatinine Clearance 149 mL/min (70-130); Calcium 9.4 mg/dL (7.8-10.44); Carbon Dioxide 20 mmol/L (22-29); Chloride 106 mmol/L (98-107); Estimated GFR-MDRD Greater than 90; Globulin 3.6 g/dL (2.4-3.5); Glucose 83 mg/dL (70-105); Potassium 3.6 mmol/L (3.5-5.1); Protein, Total 6.8 g/dL (6.0-8.3); Sodium 135 mmol/L (136-145)
--- NOTE | 2019-09-07 13:57 | PDOC.FPROB ---
FMR OB H&P: HPI - History of Present Illness Chief Complaint: Elevated BP Indentification: 23 y/o @ 33.4 WGA by LMP/18.5 wk US History of Present Illness: Patient presents for elevated BP in clinic. She was found to have two elevated diastolic BP's yesterday to the 90s in clinic and then today her prot: cr ratio resulted at 0.426 so she was sent for further evaluation. She reports her BP this AM was 124/86. Denies any H/A, vision changes, RUQ pain, SOB, swelling. Denies ctx, LOF, VB, d/c. Endorses movement. She has a hx complicated by severe pre-clampsia with MAXINE in her last resulting in delivery by section at 29 weeks. She has been checking her BP's regularly with no elevated BP's prior to this. Her most recent 24 hour urine protein was 154. Primary Care Physician: Dr. Salvador - Clinic FMR OB H&P: Current - Care : 2 Para: 0101 Gestational age: 33.4 Due date: 10/22/19 - OB Labs Blood type: A RH: positive Antibody Screen: negative HIV: negative RPR: negative HepBsAg: negative Rubella: immune Gonorrhea: negative Chlamydia: negative 1 hour gtt: 93 H&H: 11.0/32.3 Additional labs: 24h urine protein 154 - 08/14/19 urine prot:cr ratio 0.426 - 09/06/19 FMR OB H&P: History - Past Medical History PMH: None - OB History OB History: 1 section at 29 weeks for severe pre-eclampsia with acute kidney injury - Surgical History Sx History: section x1 - Social History Social History: Denies tobacco, EtOH, or drug use - Family History Family History: Denies FMR OB H&P: Medications - Current Home Medications: Medication Instructions Recorded Confirmed Type Vit,Calc78/Iron/Folic 1 tablet PO DAILY 07/01/17 09/07/19 History [Prenatabs FA Tablet] Aspirin [Ecotrin Low Strength] 1 capsule PO DAILY 09/07/19 09/07/19 History Allergies/Adverse Reactions: Allergies Allergy/AdvReac Type Severity Reaction Status Date / Time No Known Drug Allergies Allergy Verified 09/07/19 13:12 FMR OB H&P: ROS - Review of Systems General: denies: fever/chills, night sweats Eyes: denies: vision changes, double vision ENT: denies: nasal congestion, rhinorrhea Cardiovascular: denies: chest pain, edema Respiratory: denies: cough, shortness of breath Gastrointestinal: denies: abdominal pain, vomiting Genitourinary (Female): denies: dysuria, vaginal bleeding Musculoskeletal: denies: pain, swelling Neurologic: denies: numbness, seizures Integumentary: denies: itching, rash Psychological: denies: depression, anxiety FMR OB H&P: Vital Signs - Maternal Vital signs: Vital Signs - First Documented Temp Pulse Resp BP 99.4 F 111 H 20 124/80 09/07/19 13:11 09/07/19 13:11 09/07/19 13:11 09/07/19 13:11 - Heart Tones Baseline: 140 Variability: moderate Acceleration: present Deceleration: absent Category: category 1 [place] contractions every: none FMR OB H&P: Physical Exam - Physical Exam General: NAD, awake, alert and oriented HEENT: normocephalic and atraumatic, MMM, conjunctiva clear, grossly normal vision, grossly normal hearing Neck: supple, no LAD Heart: RRR, normal S1/S2, no murmurs/rubs/gallops, pulses present, no edema General: CTAB, no respiratory distress, good air movement, no rales/rhonchi, no wheezing Abdomen: soft, gravid, non-tender Musculoskeletal: normal gait and station, pulses present Neurological: no focal deficit Skin: good tugor, capillary refill <2 seconds Lymphatic: no unusual bruising or bleeding, no purpura Psychiatric: intact recent and remote memory, normal mood and affect FMR OB H&P: Results - Labs Lab results: Laboratory Results - last 24 hr 09/07/19 09/07/19 13:04 13:04 WBC 7.6 RBC 3.29 L Hgb 10.0 L Hct 30.7 L MCV 93.2 MCH 30.5 MCHC 32.7 RDW 11.8 Plt Count 204 MPV 9.0 Neutrophils % 69.9 Lymphocytes % 16.2 L Monocytes % 12.0 H Eosinophils % 0.6 Basophils % 1.3 H Neutrophils # 5.3 Lymphocytes # 1.2 Monocytes # 0.9 H Eosinophils # 0.0 Basophils # 0.1 Sodium 135 L Potassium 3.6 Chloride 106 Carbon Dioxide 20 L Anion Gap 13 BUN 5 L Creatinine 0.72 Estimated GFR (MDRD) Greater than 90 Glucose 83 Calcium 9.4 Total Bilirubin 0.2 AST 13 ALT 10 Alkaline Phosphatase 146 H Serum Total Protein 6.8 Albumin 3.2 L Globulin 3.6 H Albumin/Globulin Ratio 0.9 L FMR OB H&P: A/P - Problem List (1) Elevated BP without diagnosis of hypertension Current Visit: Yes Status: Acute Code(s): R03.0 - ELEVATED BLOOD-PRESSURE READING, W/O DIAGNOSIS OF HTN (2) Proteinuria affecting Current Visit: Yes Status: Acute Code(s): O12.10 - GESTATIONAL PROTEINURIA, UNSPECIFIED TRIMESTER (3) Hx of section Current Visit: Yes Status: Acute Code(s): Z98.891 - HISTORY OF UTERINE SCAR FROM PREVIOUS SURGERY (4) Current Visit: Yes Status: Acute Qualifiers: Weeks of gestation: 33 weeks Qualified Code(s): Z3A.33 - 33 weeks gestation of Disposition: 1. Elevated Blood pressure without dx of HTN Pt with two elevated diastolic BP's in clinic back to back, but no further elevated blood pressures and all normal today. She has a h/o severe pre- eclampsia with last . Currently on aspirin. -In setting of her history, got BPP that was 8/8. -Will give celestone due to her high risk for pre-term delivery, she can return tomorrow for second dose. -Pre-eclampsia labs all normal except prot:cr ratio 0.34 -Recommend twice weekly office visits for BP checks and to check BP BID at home -Pre-eclampsia precautions discussed 2. Proteinuria Pt with recent spot prot:cr ratio 0.426, today it was 0.34 -Will monitor outpatient 3. H/O -Plans for repeat 4. Pt 33 weeks -Celestone as above Dispo: d/c home with close f/u at clinic and 2nd dose celestone tomorrow Discussion: Date/Time: 09/07/19 2756 This H&P was discussed with Dr. Mccord who agrees with the above documentation and plan. Signature: Radha Salvador MD, PGY-3
--- NOTE | 2019-09-07 14:10 | ULT ---
ULTRASOUND BIOPHYSICAL PROFILE: FINDINGS: A single intrauterine fetus is noted in vertex presentation. The placenta is posterior. Amniotic fl uid is within normal limits. heart rate 155 b.p.m. movement, tone, and breathing movements were all visualized as well as normal amnio tic fluid volume. IMPRESSION: Normal biophysical profile score of 8/8. POS: RRE
[2019-09-07 14:50] LABS: Creatinine, Urine 166.61 mg/dL (47-110)
[2019-09-07] MEDS ORDERED: Betamet Acet/Betamet Na Ph 30 MG/5 ML VIAL IM SCH (15:00)
== END 2019-09-07 15:51 | disposition home health service (06) ==
LOC: L&D/OP 12:28
PROVIDERS: ATTEND Obstetrics & Gynecology
DX: O99.89 Other specified diseases and conditions complicating pregnancy, childbirth and the puerperium (principal); R03.0 Elevated blood-pressure reading, without diagnosis of hypertension; O12.13 Gestational proteinuria, third trimester; O34.219 Maternal care for unspecified type scar from previous cesarean delivery; O09.213 Supervision of pregnancy with history of pre-term labor, third trimester; Z3A.33 33 weeks gestation of pregnancy; Z79.82 Long term (current) use of aspirin
CPT/HCPCS: 36415; 76819; 80053; 82570; 84156; 85025; J0702

== ENCOUNTER 2019-09-08 15:30 | Day surgery (SDC) | payer OTHER ==
[2019-09-08] MEDS ORDERED: Betamet Acet/Betamet Na Ph 30 MG/5 ML VIAL IM SCH (15:45)
== END 2019-09-08 16:07 ==
LOC: L&D/OP 15:30
PROVIDERS: ATTEND Family Medicine
DX: Z29.8 Encounter for other specified prophylactic measures (principal)
CPT/HCPCS: J0702

== ENCOUNTER 2019-09-15 11:15 | Day surgery (SDC) | payer OTHER ==
--- NOTE | 2019-09-15 11:39 | PDOC.LDHP ---
Labor and Delivery H&P Chief complaint: other (HTN) HPI: Patient is a 23yo @ 34.5wga that was sent here from [facility] for two elevated BPs. Allergies/Adverse Reactions: Allergies Allergy/AdvReac Type Severity Reaction Status Date / Time No Known Drug Allergies Allergy Verified 09/07/19 13:12
--- NOTE | 2019-09-15 11:47 | PDOC.FPROB ---
FMR OB H&P: HPI - History of Present Illness Chief Complaint: elevated BP Indentification: 23F @ 34.5wga History of Present Illness: Patient is a 23yo @ 34.5wga that presents from clinic due to elevated BP. Patient was sent over from [facility] due to two elevated diastolic BP's in the 90's. She was seen here on 09/06 due to similar concerns. Her prot:creat was 0.426 on and her last 24hr urine protein was 154 on 08/13. She was given 2 doses of steroids at that time due to her history of pre-term delivery. She has a hx of severe pre-e with MAXINE with her last that required c-sec at 29wga. Today she denies any KOLB, vision changes, abdominal pain. She endorses trace non- pitting edema of her lower extremities. She denies any cp, sob, n/v/d. Primary Care Physician: [facility]-[place]/Samaria Resendiz FMR OB H&P: Current - Care : 2 Para: 0101 Gestational age: 34.5 - OB Labs Blood type: A RH: positive Antibody Screen: negative HIV: negative RPR: negative HepBsAg: negative Rubella: immune Gonorrhea: negative Chlamydia: negative 1 hour gtt: 92 H&H: 11.0/32.3 FMR OB H&P: History - OB History OB History: Last : severe pre-e with MAXINE, requiring at 29 weeks. - Surgical History Sx History: x 1 - Social History Social History: Denies smoking, drinking alcohol, using drugs - Family History Family History: Denies FMR OB H&P: Medications - Current Home Medications: Medication Instructions Recorded Confirmed Type Vit,Calc78/Iron/Folic 1 tablet PO DAILY 07/01/17 09/07/19 History [Prenatabs FA Tablet] Aspirin [Ecotrin Low Strength] 1 capsule PO DAILY 09/07/19 09/07/19 History Allergies/Adverse Reactions: Allergies Allergy/AdvReac Type Severity Reaction Status Date / Time No Known Drug Allergies Allergy Verified 09/07/19 13:12 FMR OB H&P: Physical Exam - Physical Exam General: NAD, awake, alert and oriented HEENT: normocephalic and atraumatic, MMM Neck: supple, FROM Chest: non-tender to palpation, no lesions Heart: RRR, normal S1/S2 General: CTAB, no respiratory distress Abdomen: gravid, non-tender Musculoskeletal: pulses present, FROM in all four extremities, other (trace edema) Neurological: DTR +1, no tremor Skin: no rash, good tugor Lymphatic: no unusual bruising or bleeding, no purpura Psychiatric: intact recent and remote memory, good judgement and insight FMR OB H&P: A/P - Problem List (1) Elevated BP without diagnosis of hypertension Status: Acute Code(s): R03.0 - ELEVATED BLOOD-PRESSURE READING, W/O DIAGNOSIS OF HTN (2) Status: Chronic Qualifiers: Weeks of gestation: 34 weeks Qualified Code(s): Z3A.34 - 34 weeks gestation of (3) Proteinuria affecting Status: Acute Code(s): O12.10 - GESTATIONAL PROTEINURIA, UNSPECIFIED TRIMESTER Qualifiers: Trimester: third trimester Qualified Code(s): O12.13 - Gestational proteinuria, third trimester Disposition: Patient is a 23F @ 34.5wga that is being evaluated for elevated BP without the diagnosis of HTN #Pre-Eclampsia -Pt with two elevated diastolic BP's in clinic -BP today: high of 146/96, one other systolic in the 140s and a few diastolics in the 90s -History of severe pre-eclampsia with last requiring at 29weeks. Currently on aspirin. -Patient had pre-e workup on 09/06, at which time she had elevated prot:creat ratio in the setting of elevated pressures c/w the diagnosis of pre-e -Pre-eclampsia labs: nml creatinine, AST/ALT, platelets. Prot:creat ratio 0.847 -She has had twice weekly office visits since her last hospital visit 09/06. She has been checking her BP at home BID to TID, all within the normal range 110s- 130s/80s until today. -FHT: baseline 130, reactive strip, no ctx -Growth US: 2363g, CESAR 8.6, [place] 31% -No severe range pressures, no organ dysfunction seen on pre-e labs. FHT reactive. Discussed with patient that we will discharge her for her to f/u for twice weekly BPP/NST at clinic and to continue to measure her BP at home. #H/O -Plans for repeat -Plan for delivery at 37wga. # Pt 34.5wga -Received 2 doses of celestone -plan for repeat @ 37WGA #Anemia of -09/06 H/H: 10.0/30.7 -/ H/H: 9.8/30.4 -encourage continuing iron Dispo: d/c home with twice weekly BPP/NST for pre-eclampsia. Continue monitoring BP at home. Plan for delivery at 37wga for mild pre-eclampsia. PCP: [place]/ Samaria Resendiz Discussion: Date/Time: 09/15/19 1144 This H&P was discussed with [Martín] and [Tono] who agree with the above documentation and plan. Signature: Mary Burnett MD, PGY-1
[2019-09-15 11:50] LABS: Hemoglobin 9.8 g/dL (12.0-16.0); Mean Corpuscular HGB CONC 32.1 g/dL (32.0-36.0); Mean Corpuscular Hemoglobin 30.7 pg (27.0-31.0); Mean Corpuscular Volume 95.7 fL (78.0-98.0); Mean Platelet Volume 9.3 fL (7.4-10.4); Platelet Count 249 thou/uL (130-400); Red Blood Cell (RBC) Count 3.17 mill/uL (4.20-5.40); White Blood Cell (WBC) Count 10.1 thou/uL (4.8-10.8)
[2019-09-15 12:09] VITALS: BMI 29.8
[2019-09-15 12:17] LABS: ALT (SGPT) 13 U/L (8-55); AST (SGOT) 21 U/L (5-34); Albumin 3.2 g/dL (3.5-5.0); Alkaline Phosphatase 141 U/L (40-110); Anion Gap 14 mmol/L (10-20); BUN (Urea Nitrogen) 6 mg/dL (7.0-18.7); Bilirubin, Total 0.3 mg/dL (0.2-1.2); Calc. Creatinine Clearance 156 mL/min (70-130); Calcium 9.3 mg/dL (7.8-10.44); Carbon Dioxide 20 mmol/L (22-29); Chloride 105 mmol/L (98-107); Estimated GFR-MDRD Greater than 90; Globulin 3.7 g/dL (2.4-3.5); Glucose 81 mg/dL (70-105); Potassium 4.5 mmol/L (3.5-5.1); Protein, Total 6.9 g/dL (6.0-8.3); Sodium 134 mmol/L (136-145)
[2019-09-15 13:59] LABS: Creatinine, Urine 91.99 mg/dL (47-110)
[2019-09-15] MEDS ORDERED: hydrALAZINE 20 MG/ML VIAL SLOW IVP PRN (14:38)
--- NOTE | 2019-09-15 14:41 | PDOC.EVN ---
Event Note - Event Note Event Note: OBGYN Faculty Patient seeen at bedside by me prior CS, on low dose ASA, here for BP check. Has known DX of preeclampsia without severe criteria. BPs here 130-140s/80-90s. No SXS. Labs ok. OK for outpatient follow up. NST reactive by my check. Check FEI martinez today as last sono was 24 weeks Had steroids already Please see full H&P
--- NOTE | 2019-09-15 16:18 | PDOC.BPN ---
- Brief Progress Note growth [place] 31% no severe range pressures. No headache, vision changes, abdominal pain. Discussed risks/benefits of early delivery. Scheduled for October 01 at 37.1wks. Discussed at length return precautions including headache, vision changes, abdominal pain. return for pressures >150 systolic or 110 diastolic at home. Discussed with [facility] staff, twice weekly visits. Has clinic appointment on Wednesday.
--- NOTE | 2019-09-15 16:54 | ULT ---
ULTRASOUND OB LIMITED: 09/15/19 HISTORY: Evaluate growth. COMPARISON: Ultrasound 09/07/19. FINDINGS: Real time shaffer scale, color flow and spectral analysis of the gravid uterus was performed. Single viable intrauterine with average ultrasound age of 34 week, 0 day. Estimated date of delivery is 10/27/19. weight is 5 lb. 3 oz, 52nd percentile. Heart rate documented at 144 beats per minute. CESAR: 8.6 cm. The position is vertex. Placenta is posterior. IMPRESSION: Viable intrauterine as described. POS: HOME
== END 2019-09-15 16:28 | disposition home or self-care (01) ==
LOC: L&D/OP 11:15
PROVIDERS: ATTEND Family Medicine
DX: O14.03 Mild to moderate pre-eclampsia, third trimester (principal); O99.013 Anemia complicating pregnancy, third trimester; D64.9 Anemia, unspecified; O09.213 Supervision of pregnancy with history of pre-term labor, third trimester; O34.219 Maternal care for unspecified type scar from previous cesarean delivery; Z3A.34 34 weeks gestation of pregnancy; Z79.82 Long term (current) use of aspirin
CPT/HCPCS: 36415; 76815; 80053; 82570; 84156; 85027

== ENCOUNTER 2021-12-10 09:32 | Emergency (ER) | payer OTHER ==
[2021-12-10 10:44] LABS: #Basophils 0.1 thou/uL (0.0-0.2); #Lymphocytes 0.9 thou/uL (1.20-3.40); #Monocytes 0.5 thou/uL (0.11-0.59); #Neutrophils 5.9 thou/uL (1.40-6.50); %Basophils 1.2 % (0.0-1.0); %Eosinophils 0.5 % (0.0-10.0); %Lymphocytes 12.1 % (21.0-51.0); %Monocytes 6.3 % (0.0-10.0); %Neutrophils 79.8 % (42.0-75.0); Hemoglobin 12.7 g/dL (12.0-16.0); Mean Corpuscular HGB CONC 33.3 g/dL (32.0-36.0); Mean Corpuscular Hemoglobin 31.2 pg (27.0-31.0); Mean Corpuscular Volume 93.4 fL (78.0-98.0); Mean Platelet Volume 8.5 fL (7.4-10.4); Platelet Count 236 thou/uL (130-400); RBC Distribution Width 10.7 % (11.5-14.5); Red Blood Cell (RBC) Count 4.06 mill/uL (4.20-5.40); White Blood Cell (WBC) Count 7.4 thou/uL (4.8-10.8)
[2021-12-10 10:49] LABS: Bilirubin 1+ (Negative); Blood, Urine Negative (Negative); Clarity Turbid (Clear); Glucose, Urine (Dipstick) Normal (Negative); Ketone, Urine Greater than 150 mg/dL (Negative); Leukocyte 500 Leu/uL (Negative); Nitrite Negative (Negative); Protein, Urine (Dipstick) 70 mg/dL (Neg-Trace); RBC/HPF 0-3 HPF (0-3); Specific Gravity, Urine 1.033 (1.002-1.036); Urobilinogen 3 mg/dL (Less than 2)
[2021-12-10 11:02] LABS: Squamous Epithelial 21-50 HPF (0-3)
[2021-12-10 11:03] LABS: Bacteria/HPF 2+ HPF (None Seen)
[2021-12-10 11:06] LABS: ALT (SGPT) 9 U/L (8-55); AST (SGOT) 12 U/L (5-34); Albumin 3.8 g/dL (3.5-5.0); Alkaline Phosphatase 49 U/L (40-110); Anion Gap 14 mmol/L (10-20); BUN (Urea Nitrogen) 8 mg/dL (7.0-18.7); Bilirubin, Total 0.5 mg/dL (0.2-1.2); Calc. Creatinine Clearance 0 mL/min (70-130); Calcium 9.9 mg/dL (7.8-10.44); Carbon Dioxide 24 mmol/L (22-29); Chloride 104 mmol/L (98-107); Estimated GFR 125; Globulin 3.9 g/dL (2.4-3.5); Glucose 73 mg/dL (70-105); Lipase 12 U/L (8-78); Potassium 4.1 mmol/L (3.5-5.1); Protein, Total 7.7 g/dL (6.0-8.3); Sodium 138 mmol/L (136-145)
[2021-12-10] MEDS ORDERED: Metoclopramide HCl 10 MG/2 ML VIAL ONE (11:08)
== END 2021-12-10 12:30 | disposition home or self-care (01) ==
LOC: ERS 09:32
DX: O23.41 Unspecified infection of urinary tract in pregnancy, first trimester (principal); N39.0 Urinary tract infection, site not specified; O21.9 Vomiting of pregnancy, unspecified; Z3A.12 12 weeks gestation of pregnancy
CPT/HCPCS: 36415; 80053; 81003; 81015; 83690; 84702; 85025; 87086; 96365; J2765